=== PATIENT | male | born 1990 | race Caucasian/White ===

== ENCOUNTER 2017-09-20 20:07 | Emergency (ER) | payer MEDICAID, OTHER ==
[~2017-09-20] VITALS: Ht 167.6 cm; Wt 74.8 kg
[2017-09-20 20:20] VITALS: BP 111/73
--- NOTE | 2017-09-20 20:22 | NUR ---
TO LOBBY A/W BED, ROBERTO IZAGUIRRE , PAZ NOTED
--- NOTE | 2017-09-20 22:42 | NUR ---
Patient ambulated to bed 7. RN evaluating patient at bedside.
--- NOTE | 2017-09-20 22:45 | NUR ---
PATIENT PRESENTS TO ED WITH BACK PAIN X2 WEEKS. PT DENIES N/V/D; SKIN IS PINK/WARM/DRY; AAOX4 WITH EVEN AND STEADY GAIT; LUNGS CLEAR BL; HR EVEN AND REGULAR; PT DENIES ANY FEVER, CP, SOB, OR COUGH AT THIS TIME; PATIENT STATES PAIN OF 9/10 AT THIS TIME; VSS; PATIENT POSITIONED FOR COMFORT; HOB ELEVATED; BEDRAILS UP X1; BED DOWN. ER MD MADE AWARE OF PT STATUS.
[2017-09-20] MEDS ORDERED: KETOROLAC 60 MG/2 ML VIAL IM ONE (22:50)
--- NOTE | 2017-09-21 01:09 | NUR ---
Patient discharged BY DR. VALLES with v/s stable. Written and verbal after care instructions given and explained. Patient alert, oriented and verbalized understanding of instructions. Ambulatory with steady gait. All questions addressed prior to discharge. ID band removed. Patient advised to follow up with PMD. Rx of NAPROSYN given. Patient educated on indication of medication including possible reaction and side effects. Opportunity to ask questions provided and answered.
[2017-09-21 01:10] VITALS: BP 111/73
== END 2017-09-21 01:09 | disposition home or self-care (01) ==
LOC: MED 20:07
DX: S33.9XXA Sprain of unspecified parts of lumbar spine and pelvis, initial encounter (principal); X58.XXXA Exposure to other specified factors, initial encounter; Y93.89 Activity, other specified; Y99.8 Other external cause status; Y92.89 Other specified places as the place of occurrence of the external cause
CPT/HCPCS: 72131; 81002; 96372; 99284; J1885

== ENCOUNTER 2017-11-06 08:26 | Inpatient (IN) | payer OTHER ==
[~2017-11-06] VITALS: Ht 167.6 cm; Wt 69.9 kg
--- NOTE | 2017-11-06 08:28 | NUR ---
PT BIBA BLS TO BED 5
[2017-11-06 08:30] VITALS: BP 117/27
--- NOTE | 2017-11-06 08:32 | NUR ---
crystal Wells at bedside.
--- NOTE | 2017-11-06 08:36 | NUR ---
PER FOOTBALL SCOUT,MOTHER OF PATIENT CALLED BECAUSE PATIENT PATIENT NOT EATING X4 DAYS,NOT TAKING HIS MEDS AND SLEPT IN HIS CAR LAST NIGHT. [employer] PUT PATIENT ON 5150 HOLD DANGER TO SELF. PER PATIENT,HE IS NOT EATING BECAUSE HE DOES NOT WANT TO GAIN WEIGHT. PER PATIENT, HE DOES NOT TAKE HIS MEDS. BECAUSE IT MAKES HIM GAIN WEIGHT. DENIES SUICIDAL IDEATION,HI AND DTO.HX: BIPOLAR AND PSYCHOSIS. MEDS. LEXAPRO,DEPAKOTE. PER PATIENT HE WAS ADMITTED IN [facility] LAST YEAR 2340
[2017-11-06] MEDS ORDERED: NACL 0.9% 1,000 ML IV ONE (08:41)
[2017-11-06] MEDS ORDERED: ESCI10TA PO (08:54)
[2017-11-06] MEDS ORDERED: DIVA500T1 PO (08:54)
[2017-11-06 09:35] LABS: BASOPHILS % (AUTO) 0.7 % (0.0-2.0); EOSINOPHILS # (AUTO) 0.1 K/uL (0-0.4); EOSINOPHILS % (AUTO) 1.8 % (0.0-4.0); HEMATOCRIT 41.2 % (36-52); HEMOGLOBIN 13.8 g/dL (12.0-18.0); LYMPHOCYTES # (AUTO) 1.3 K/uL (2.0-11.5); LYMPHOCYTES % (AUTO) 25.8 % (20.5-51.1); MEAN CORPUSCULAR HEMOGLOBIN 31 pg (27-31); MEAN CORPUSCULAR HGB CONC 33 g/dL (33-37); MEAN CORPUSCULAR VOLUME 93.3 fL (80-94); MONOCYTES # (AUTO) 0.4 K/uL (0.8-1.0); MONOCYTES % (AUTO) 8.1 % (1.7-9.3); NEUTROPHILS # (AUTO) 3.2 K/uL (1.8-7.7); NEUTROPHILS % (AUTO) 63.6 % (42.2-75.2); PLATELET COUNT (AUTO) 194 K/uL (140-450); RED BLOOD CELL COUNT(AUTO) 4.42 MIL/uL (4.20-6.10); RED CELL DISTRIBUTION WIDTH 13.4 % (11.6-13.7); WHITE BLOOD COUNT (AUTO) 5.1 K/uL (4.8-10.8)
[2017-11-06 09:48] LABS: APPEARANCE,URINE HAZY (CLEAR); BILIRUBIN,URINE NEGATIVE (NEGATIVE); BLOOD, URINE NEGATIVE (NEGATIVE); COLOR,URINE YELLOW (YELLOW); LEUKOCYTE ESTERASE ,URINE 1+ (NEGATIVE); NITRITE, URINE NEGATIVE (NEGATIVE); PH,URINE 6.5 (5.0-9.0); UGLUCOSE NEGATIVE (NEGATIVE)
[2017-11-06 09:50] LABS: BARBITURATE, URINE NEG. ng/ml (NEG <=200); BENZODIAZEPINE, URINE NEG. ng/mL (NEG <=200); CANNABINOID, URINE POS. ng/mL (NEG <=50); COCAINE, URINE NEG. ng/mL (NEG <=300); OPIATE, URINE NEG. ng/mL (NEG <=2000); PHENCYCLIDINE SCREEN,URINE NEG. ng/mL (NEG <=25)
[2017-11-06 09:54] LABS: ANION GAP 9.2 (8-16); CARBON DIOXIDE 29.2 mmol/L (21-32); CHLORIDE 106 mmol/L (98-107); CREATININE 0.9 mg/dL (0.7-1.3); GFR ARICAN-AMERICAN 129 mL/min (>90); GLUCOSE 89 mg/dL (74-106); POTASSIUM 3.4 mmol/L (3.5-5.1); SODIUM SERUM 141 mmol/L (136-145); UREA NITROGEN, BLOOD 7 mg/dL (7-18)
[2017-11-06 10:00] LABS: ACETAMINOPHEN < 0.5 ug/ml (10-30); ALBUMIN 4.1 g/dL (3.4-5.0); ASPARTATE AMINOTRANSFERASE 15 U/L (15-37); SALICYLATE < 2.8 mg/dL (2.8-20.0); TOTAL BILIRUBIN 0.7 mg/dL (0.0-1.0)
[2017-11-06 10:20] LABS: RBC,URINE 0-5 (RARE) /HPF (0-5)
--- NOTE | 2017-11-06 11:09 | NUR ---
Pt with eyes closed, in nad. Sitter at bedside.
[2017-11-06] MEDS ORDERED: ACETAMINOPHEN 325 MG TAB PO PRN (11:40)
[2017-11-06] MEDS ORDERED: ONDANSETRON 4 MG/2 ML VIAL IVP PRN (11:40)
--- NOTE | 2017-11-06 13:30 | NUR ---
PATIENT WHEELED ONTO THE FLOOR BY ER STAFF. REPORT RECEIVED FROM METALLURGICAL ENGINEERING TEACHER AT BEDSIDE FOR CONTINUITY OF CARE. PATIENT AOX4, DX SCHIZOAFFECTIVE DISORDER, POLYSUBSTANCE ABUSE, ON 5150 FOR DTS, GRAVELY DISABLED. PATIENT ABLE TO MAKE NEEDS KNOWN, NO DISTRESS OR SOB ON ROOM AIR. ORIENTED PATIENT TO FLOOR, ROOM AND BATHROOM. MRSA SCREENING DONE. INITIAL ASSESSMENT DONE. SAFETY PRECAUTION IN PLACE, 1:1 SITTER AT BEDSIDE, WILL CONTINUE TO MONITOR PATIENT.
--- NOTE | 2017-11-06 13:47 | NUR ---
No Bed Vacancies at following facilities: [facility] s[facility]w [facility]w Frederic Will continue to look for placement throughout shift.
[2017-11-06 13:50] VITALS: BP 107/61
--- NOTE | 2017-11-06 13:50 | NUR ---
ASKED IF PATIENT WANTED FOOD OR DRINKS, PATIENT REQUESTED FOR JUICE AND A TUNE SANDWHICH. PATIENT STATES THAT HE DOES NOT HAVE ANY APPETITE FOR FOOD BUT JUST WANTS JUICE OR WATER. RN VERBALIZED UNDERSTANDING. SAFETY PRECAUTION IN PLACE, 1:1 SITTER AT BEDSIDE, WILL CONTINUE TO MONITOR PATIENT.
--- NOTE | 2017-11-06 13:51 | NUR ---
Patient will be admitted to care of Dr Bunn. Admited to tele. Will go to room. Belongings list completed. Report to .
--- NOTE | 2017-11-06 15:25 | NUR ---
PATIENT SLEEPING IN BED, NO SIGNS OF DISTRESS OR SOB NOTED. 1: [address], WILL CONTINUE TO MONITOR PATIENT.
[2017-11-06 16:00] VITALS: BP 103/64
[2017-11-06] MEDS: ESCITALOPRAM 20 MG TAB PO SCH (16:42)
--- NOTE | 2017-11-06 16:44 | NUR ---
ORDERED MEDICATION GIVEN. PATIENT TOLERATED IT WELL. NO SIGNS OF DISTRESS OR SOB NOTED ON ROOM AIR. PATIENT COOPERATIVE. VS WNL. PATIENT DID NOT EAT THE TUNA SANDWICH THAT WAS GIVEN. PATIENT DID DRINK 3 BOX OF OJ AND SOME WATER. PATIENTS RIGHT HAND IV DISLODGED, PATIENT DOES NOT WANT NEW IV AT THE MOMENT. SAFETY PRECAUTION IN PLACE, 1:1 SITTER AT BEDSIDE. WILL CONTINUE TO MONITOR PATIENT.
--- NOTE | 2017-11-06 17:24 | NUR ---
PATIENT SLEEPING IN BED, NO SIGNS OF DISTRESS OR SOB NOTED. WILL CONTINUE TO MONITOR PATIENT.
--- NOTE | 2017-11-06 17:25 | NUR ---
PAGED DR. BAILON, DR. ELIZABETH WARP TYING MACHINE TENDER. DR. ELIZABEHT CALLED BACK, INFORMED HIM OF PATIENT'S K LEVEL OF 3.4. NEW ORDERS FOR 40 MEQ KCL PO ONCE. WILL FOLLOW ORDERS ONCE VERIFIED BY PHARMACY.
[2017-11-06] MEDS ORDERED: POTASSIUM CHLORIDE 10 MEQ TABER PO SCH (18:00)
--- NOTE | 2017-11-06 18:15 | NUR ---
ORDERED MEDICATION GIVEN. PATIENT TOLERATED IT WELL. NO SIGNS OF DISTRESS OR SOB NOTED ON ROOM AIR. PATIENT COOPERATIVE. SAFETY PRECAUTION IN PLACE, 1:1 SITTER AT BEDSIDE. WILL CONTINUE TO MONITOR PATIENT.
--- NOTE | 2017-11-06 19:15 | NUR ---
REPORT GIVEN AT BEDSIDE TO PARKING LOT SPOTTER NURSE FOR CONTINUITY OF CARE. PATIENT IN STABLE CONDITION.
--- NOTE | 2017-11-06 19:16 | NUR ---
ASSUMED CONTINUITY OF CARE. NO SIGNS AND SYMPTOMS OF ACUTE DISTRESS NOTED. CALM, QUIET, AND COOPERATIVE. NO SUICIDAL THOUGHTS OBSERVED. NO IV ACCESS AT THIS TIME. KEEP SURROUNDINGS SAFE. CLOSELY MONITORED BY A SITTER 1:1 FOR SUICIDAL PREVENTION.
[2017-11-06 20:00] VITALS: BP 105/56
--- NOTE | 2017-11-06 20:00 | NUR ---
Patient's Plan of Care was discussed and reviewed with CANCER CENTER DIRECTOR: NELY FERNANDEZ.
[2017-11-06] MEDS: DIVALPROEX 500 MG TABEC PO SCH (20:17)
--- NOTE | 2017-11-06 23:39 | NUR ---
REPORT GIVEN TO VIDA DOMINGO. IN STABLE CONDITION.
--- NOTE | 2017-11-07 00:45 | NUR ---
RECEIVED REPORT FROM CHARGE NURSE VIDA. 1:1 SITTER BY WEATHER ANCHOR JOSE. PT CURRENTLY IN RESTROOM USING TOILET. NO S/S OF RESPIRATORY DISTRESS OR DISCOMFORT NOTED AT THIS TIME. AOX4, ON ROOM AIR WITH LEFT FA #[id number]. WILL CONTINUE TO MONITOR.
--- NOTE | 2017-11-07 02:00 | NUR ---
PT SLEEPING IN BED. NO S/S OF RESPIRATORY DISTRESS OR DISCOMFORT AT THIS TIME. WILL CONTINUE TO MONITOR.
--- NOTE | 2017-11-07 04:00 | NUR ---
PT SLEEPING IN BED. NO S/S OF RESPIRATORY DISTRESS OR DISCOMFORT AT THIS TIME. WILL CONTINUE TO MONITOR.
--- NOTE | 2017-11-07 06:00 | NUR ---
PT SLEEPING IN BED. NO S/S OF RESPIRATORY DISTRESS OR DISCOMFORT NOTED AT THIS TIME. WILL CONTINUE TO MONITOR.
--- NOTE | 2017-11-07 07:29 | NUR ---
ENDORSED PT CARE TO DAY SHIFT NURSE REYMUNDO Omalley RN FOR CONTINUITY OF CARE.
--- NOTE | 2017-11-07 07:30 | NUR ---
RECEIVED REPORT FROM PM NURSE, PT AWAKE, ALERT. RA, NO S/S OF RESPIRATORY DISTRESS NOTED. INTRODUCED MYSELF TO PT AND REORIENTED PT ENVIRONMENT. PT VERBALIZED UNDERSTANDING. PT AMBULATES TO BATHROOM. PT STATED HE DOES NOT HAVE ANY SUICIDAL PLAN AT THIS MOMENT. WILL CONTINUE TO CLOSE MONITORING PT.
[2017-11-07 07:54] LABS: ANION GAP 11.1 (8-16); CARBON DIOXIDE 27.4 mmol/L (21-32); CREATININE 0.8 mg/dL (0.7-1.3); POTASSIUM 4.5 mmol/L (3.5-5.1)
[2017-11-07 08:00] VITALS: BP 100/58
[2017-11-07 08:01] LABS: BASOPHILS % (AUTO) 0.6 % (0.0-2.0); EOSINOPHILS # (AUTO) 0.1 K/uL (0-0.4); HEMATOCRIT 41.7 % (36-52); LYMPHOCYTES # (AUTO) 1.9 K/uL (2.0-11.5); LYMPHOCYTES % (AUTO) 40.7 % (20.5-51.1); MEAN CORPUSCULAR HEMOGLOBIN 32 pg (27-31); MEAN CORPUSCULAR HGB CONC 34 g/dL (33-37); MEAN CORPUSCULAR VOLUME 93.6 fL (80-94); MONOCYTES # (AUTO) 0.4 K/uL (0.8-1.0); MONOCYTES % (AUTO) 9.4 % (1.7-9.3); NEUTROPHILS # (AUTO) 2.2 K/uL (1.8-7.7); NEUTROPHILS % (AUTO) 47.3 % (42.2-75.2); PLATELET COUNT (AUTO) 189 K/uL (140-450); RED BLOOD CELL COUNT(AUTO) 4.46 MIL/uL (4.20-6.10); RED CELL DISTRIBUTION WIDTH 13.4 % (11.6-13.7); WHITE BLOOD COUNT (AUTO) 4.7 K/uL (4.8-10.8)
[2017-11-07] MEDS: DIVALPROEX 500 MG TABEC PO SCH (08:14)
--- NOTE | 2017-11-07 08:31 | NUR ---
[facility] aware patient is still in unit. received report from hourly shift manager, will continue to look for placement throughout shift. will update unit when new information has been received.
--- NOTE | 2017-11-07 10:05 | NUR ---
DR. BAILON IN TO CHECK PT.
--- NOTE | 2017-11-07 11:00 | NUR ---
FAXED CONSULTATION FORM TO DR. SILVA OFFICE.
--- NOTE | 2017-11-07 12:45 | NUR ---
LUNCH TRAY OFFERED TO PT.
--- NOTE | 2017-11-07 13:20 | NUR ---
No update from contacted facilities at this time, faxed over paperwork to [facility] s/w Brit, reviewing chart. Faxed over paperwork [facility] and [facility] as well. No Bed Vacancies at following facilities: [facility] s/w Dianelys [facility] s/w Joaquin [facility] s/w Og [facility] s/w Michelle Bagley s/w [facility] s/w Dayanara [facility] s/w [facility] s/w Quirino Figueroa [facility] s/w Akshat Will continue to look for placement throughout shift.
--- NOTE | 2017-11-07 15:31 | NUR ---
PSYCHIATRIST AT BEDSIDE TO ASSESS PT.
[2017-11-07 16:00] VITALS: BP 103/54
--- NOTE | 2017-11-07 17:28 | NUR ---
CALLED PT'S MOTHER [phone] REGARDING DISCHARGE, NO ANSWER , VOICE MESSAGE LEFT AND CALL BACK NUMBER ALSO LEFT, WILL FOLLOW UP.
[2017-11-07] MEDS: ESCITALOPRAM 20 MG TAB PO SCH (17:29)
--- NOTE | 2017-11-07 18:00 | NUR ---
PT AWAKE, ALERT, AND ORIENTED. ON ROOM AIR, NO S/S OF RESPIRATORY DISTRESS NOTED. PT SIGNED DISCHARGE PAPER AND VERBALIZED UNDERSTANDING. IV REMOVED, ID BAND REMOVED. ALL PERSONAL BELONGINGS WITH PT. PT IN STABLE CONDITION .
--- NOTE | 2017-11-07 18:30 | NUR ---
PT CALLED HIS MOM, NO ANSWER, VOICE MESSAGE AND CALL BACK NUMBER LEFT.
--- NOTE | 2017-11-07 18:55 | NUR ---
PT CALLED HIS MOM AGAIN, CELLPHONE IS OFF, WENT TO VOICE MESSAGE AUTOMATICALLY.
--- NOTE | 2017-11-07 19:04 | NUR ---
PT ATE DINNER, HE STATED HE WANTED TO WALK HOME BY HIMSELF, PT LEFT UNIT WITH STEADY GAIT IN STABLE CONDITION.
--- NOTE | 2017-11-08 09:05 | NUR ---
CM NOTE RETRO ER DR'S NOTE, H&P, CONSULTATION NOTE, PATIENT VISIT REPORT FAXED TO [facility] [phone]
== END 2017-11-07 19:03 | disposition home or self-care (01) | DRG 750 ==
LOC: MED 08:26 → MTU 11:41
PROVIDERS: ADMIT Internal Medicine; ATTEND Internal Medicine
DX: F25.9 Schizoaffective disorder, unspecified (principal); F31.32 Bipolar disorder, current episode depressed, moderate; F17.210 Nicotine dependence, cigarettes, uncomplicated; F43.10 Post-traumatic stress disorder, unspecified; F15.10 Other stimulant abuse, uncomplicated; F12.10 Cannabis abuse, uncomplicated; Z79.899 Other long term (current) drug therapy; Z82.49 Family history of ischemic heart disease and other diseases of the circulatory system
CPT/HCPCS: 36415; 80048; 80053; 80305; 81001; 84484; 85025; 87081; 87086; 99285; G0480; G0482

== ENCOUNTER 2018-02-14 19:15 | Emergency (ER) | payer OTHER ==
[~2018-02-14] VITALS: Ht 167.6 cm; Wt 68.0 kg
[~2018-02-14 19:15] MED LIST: DIVA500T1 PO; ESCI10TA PO
[2018-02-14 19:22] VITALS: BP 121/70
[2018-02-14] MEDS ORDERED: cefTRIAXone 250 MG in LIDOCAINE MPF 1% - 5 mL VIAL 0.9 ML IM ONE (19:35)
[2018-02-14 19:53] VITALS: BP 120/80
== END 2018-02-14 19:53 | disposition home or self-care (01) ==
LOC: MED 19:15
DX: L03.031 Cellulitis of right toe (principal); Z89.421 Acquired absence of other right toe(s); Z79.899 Other long term (current) drug therapy
CPT/HCPCS: 90471; 90715; 96372; 99283; J0696; J2001

== ENCOUNTER 2019-12-14 15:17 | Emergency (ER) | payer OTHER ==
[~2019-12-14] VITALS: Ht 165.1 cm; Wt 71.7 kg
[2019-12-14 15:20] VITALS: BP 107/73
[2019-12-14 16:15] LABS: BASOPHILS # (AUTO) 0.1 K/uL (0.00-0.22); BASOPHILS % (AUTO) 0.9 % (0.0-2.0); EOSINOPHILS # (AUTO) 0.1 K/uL (0-0.4); EOSINOPHILS % (AUTO) 0.7 % (0.0-4.0); HEMATOCRIT 46.1 % (36-52); HEMOGLOBIN 15.3 g/dL (12.0-18.0); LYMPHOCYTES # (AUTO) 2.3 K/uL (2.0-11.5); LYMPHOCYTES % (AUTO) 32.2 % (20.5-51.1); MEAN CORPUSCULAR HEMOGLOBIN 32 pg (27-31); MEAN CORPUSCULAR HGB CONC 33 g/dL (33-37); MEAN CORPUSCULAR VOLUME 96.2 fL (80-94); MONOCYTES # (AUTO) 0.4 K/uL (0.8-1.0); MONOCYTES % (AUTO) 6.1 % (1.7-9.3); NEUTROPHILS # (AUTO) 4.4 K/uL (1.8-7.7); NEUTROPHILS % (AUTO) 60.1 % (42.2-75.2); PLATELET COUNT (AUTO) 218 K/uL (140-450); RED BLOOD CELL COUNT(AUTO) 4.79 MIL/uL (4.20-6.10); RED CELL DISTRIBUTION WIDTH 13.5 % (11.6-13.7); WHITE BLOOD COUNT (AUTO) 7.2 K/uL (4.8-10.8)
[2019-12-14 16:25] LABS: APPEARANCE,URINE CLEAR (CLEAR); BILIRUBIN,URINE NEGATIVE (NEGATIVE); BLOOD, URINE NEGATIVE (NEGATIVE); COLOR,URINE YELLOW (YELLOW); LEUKOCYTE ESTERASE ,URINE NEGATIVE (NEGATIVE); NITRITE, URINE NEGATIVE (NEGATIVE); PH,URINE 8.5 (5.0-9.0); UGLUCOSE NEGATIVE (NEGATIVE)
[2019-12-14 16:38] LABS: ALBUMIN 4.2 g/dL (3.4-5.0); ANION GAP 11.3 (8-16); CARBON DIOXIDE 27.6 mmol/L (21-32); CREATININE 0.9 mg/dL (0.6-1.3); POTASSIUM 3.9 mmol/L (3.5-5.1); THYROID STIMULATING HORMONE 1.15 uIU/mL (0.34-3.74); TOTAL BILIRUBIN 0.3 mg/dL (0.0-1.0)
[2019-12-14 16:49] VITALS: BP 107/73
== END 2019-12-14 16:49 | disposition home or self-care (01) ==
LOC: MED 15:17
DX: R53.1 Weakness (principal); F20.9 Schizophrenia, unspecified; F17.210 Nicotine dependence, cigarettes, uncomplicated; Z71.6 Tobacco abuse counseling; Z79.899 Other long term (current) drug therapy
CPT/HCPCS: 36415; 80053; 81003; 84443; 85025; 99283

== ENCOUNTER 2020-04-26 18:48 | Emergency (ER) | payer OTHER ==
[~2020-04-26] VITALS: Ht 165.1 cm; Wt 63.5 kg
[2020-04-26 18:50] VITALS: BP 145/92
[2020-04-26] MEDS ORDERED: NACL 0.9% 1,000 ML IV ONE (19:00)
[2020-04-26 19:23] LABS: BASOPHILS # (AUTO) 0.1 K/uL (0.00-0.22); BASOPHILS % (AUTO) 1.4 % (0.0-2.0); EOSINOPHILS % (AUTO) 0.5 % (0.0-4.0); HEMATOCRIT 50.2 % (36-52); HEMOGLOBIN 16.9 g/dL (12.0-18.0); LYMPHOCYTES # (AUTO) 1.9 K/uL (2.0-11.5); MEAN CORPUSCULAR HEMOGLOBIN 32 pg (27-31); MEAN CORPUSCULAR HGB CONC 34 g/dL (33-37); MEAN CORPUSCULAR VOLUME 95.8 fL (80-94); MONOCYTES # (AUTO) 0.7 K/uL (0.8-1.0); MONOCYTES % (AUTO) 7.1 % (1.7-9.3); NEUTROPHILS # (AUTO) 6.7 K/uL (1.8-7.7); PLATELET COUNT (AUTO) 230 K/uL (140-450); RED BLOOD CELL COUNT(AUTO) 5.24 MIL/uL (4.20-6.10); RED CELL DISTRIBUTION WIDTH 13.8 % (11.6-13.7); WHITE BLOOD COUNT (AUTO) 9.4 K/uL (4.8-10.8)
[2020-04-26 19:36] LABS: ALBUMIN 4.9 g/dL (3.4-5.0); ANION GAP 12.9 (8-16); ASPARTATE AMINOTRANSFERASE 25 U/L (15-37); CARBON DIOXIDE 27.5 mmol/L (21-32); CHLORIDE 100 mmol/L (98-107); CREATININE 0.9 mg/dL (0.6-1.3); GFR ARICAN-AMERICAN 127 mL/min (>90); GLUCOSE 93 mg/dL (74-106); POTASSIUM 3.4 mmol/L (3.5-5.1); SODIUM SERUM 137 mmol/L (136-145); UREA NITROGEN, BLOOD 16 mg/dL (7-18)
[2020-04-26 19:37] LABS: ACETAMINOPHEN < 0.5 ug/ml (10-30); SALICYLATE < 2.8 mg/dL (2.8-20.0)
[2020-04-26 20:36] LABS: BARBITURATE, URINE NEGATIVE ng/ml (NEG <=200); BENZODIAZEPINE, URINE NEGATIVE ng/mL (NEG <=200); CANNABINOID, URINE POSITIVE ng/mL (NEG <=50); COCAINE, URINE NEGATIVE ng/mL (NEG <=300); OPIATE, URINE NEGATIVE ng/mL (NEG <=2000); PHENCYCLIDINE SCREEN,URINE NEGATIVE ng/mL (NEG <=25)
[2020-04-28 14:13] VITALS: BP 112/62
== END 2020-04-28 14:13 | disposition home or self-care (01) ==
LOC: MED 18:48
DX: R45.851 Suicidal ideations (principal); F20.9 Schizophrenia, unspecified; F17.210 Nicotine dependence, cigarettes, uncomplicated; Z20.828 Contact with and (suspected) exposure to other viral communicable diseases
CPT/HCPCS: 36415; 80053; 80305; 85025; 87426; 93005; 96360; 99285; G0480; G0482; U0003

== ENCOUNTER 2020-06-21 09:34 | Emergency (ER) | payer OTHER ==
[~2020-06-21] VITALS: Ht 162.6 cm; Wt 66.7 kg
[2020-06-21 09:57] VITALS: BP 125/71
--- NOTE | 2020-06-21 10:02 | NUR ---
PT AMBULATED TO BED 7 WITH EVEN STEADY GAIT
--- NOTE | 2020-06-21 10:04 | NUR ---
DR PARIKH AT BEDSIDE
[2020-06-21] MEDS ORDERED: OLANZapine 5 MG ODT PO ONE (10:10)
--- NOTE | 2020-06-21 10:12 | NUR ---
29 Y/O MALE BIB MOTHER FOR MEDICATION REFILL. PT MOTHER STATES PT HAS NOT HAD MEDICATIONS [id number]. PT TAKING ENERGY DRINKS AND NOT SLEEPING. PT STATES HE HAS "MENTAL PAIN" BUT NO PHYSICAL PAIN. PT DENIES VH/AH/SI. PER PT, HE HAS BEEN OFF MEDS FOR MONTHS BECAUSE "THEY ARE NOT TAKING MY PAIN OUT OF MY HEAD" AND DIDNT LIKE HOW THEY MADE HIM FEEL. PT STATES HE LIVES WITH HIS MOTHER BUT APPEARS DISHELVED. PT STATES HE DRINKS 3-4 ENERGY DRINKS A DAY BECAUSE HE IS TIRED AND ONLY SLEPT 2 HRS LAST NIGHT. PT IS A/O X4 WITH EVEN AND UNLABORED RESPIRATIONS. PT LAYING IN BED WITH BED IN LOWEST POSITION, BRAKES LOCKED, X1 SIDERAIL UP. PMH: BIPOLAR, SCHIZOPHRENIA, AND PSYCHOSIS NKA
[2020-06-21 10:54] VITALS: BP 125/71
--- NOTE | 2020-06-21 10:54 | NUR ---
Patient discharged with v/s stable. Written and verbal after care instructions given and explained. Patient verbalized understanding. Ambulatory with steady gait. All questions addressed prior to discharge. Advised to follow up with PMD.
== END 2020-06-21 10:54 | disposition home or self-care (01) ==
LOC: MED 09:34
DX: F20.9 Schizophrenia, unspecified (principal); R46.0 Very low level of personal hygiene; F12.10 Cannabis abuse, uncomplicated
CPT/HCPCS: 99283

== ENCOUNTER 2020-11-28 18:37 | Emergency (ER) | payer OTHER ==
[~2020-11-28] VITALS: Ht 162.6 cm; Wt 63.0 kg
[2020-11-28 20:44] VITALS: BP 107/79
--- NOTE | 2020-11-28 20:47 | NUR ---
TO LOBBY A/W BED AMBULATORY
--- NOTE | 2020-11-28 22:42 | NUR ---
PT TAKEN TO CHAIR
[2020-11-28] MEDS ORDERED: KETOROLAC 60 MG/2 ML VIAL IM ONE (22:55)
[2020-11-28] MEDS ORDERED: MELA10CA PO (23:01)
[2020-11-28] MEDS ORDERED: IBUP-2213 PO (23:01)
[2020-11-28 23:43] VITALS: BP 107/79
[2020-11-29] MEDS ORDERED: MELA10CA PO (08:54)
[2020-11-29] MEDS ORDERED: IBUP-2213 PO (08:54)
== END 2020-11-28 23:43 | disposition home or self-care (01) ==
LOC: MED 18:37
DX: R51.9 Headache, unspecified (principal); F15.182 Other stimulant abuse with stimulant-induced sleep disorder; F17.210 Nicotine dependence, cigarettes, uncomplicated; Z71.6 Tobacco abuse counseling
CPT/HCPCS: 96372; 99283; J1885